=== PATIENT | female | born 1985 | race Caucasian/White ===

== ENCOUNTER 2016-05-31 22:52 | Emergency (ER) | payer SELFPAY ==
[~2016-05-31] VITALS: Ht 154.9 cm; Wt 43.0 kg
[~2016-05-31 22:52] MED LIST: NAPROSYN500 MG PO; XANAX0.25 MG PO
[2016-05-31 23:38] LABS: URINE BILIRUBIN - DIPSTICK NEGATIVE (NEGATIVE); URINE BLOOD DIPSTICK TRACE-INTACT (NEGATIVE); URINE CLARITY TURBID; URINE COLOR YELLOW; URINE GLUCOSE - DIPSTICK NEGATIVE (NEGATIVE); URINE KETONE NEGATIVE (NEGATIVE); URINE LEUK ESTERASE NEGATIVE (NEGATIVE); URINE NITRITE - DIPSTICK NEGATIVE (Negative); URINE PROTEIN - DIPSTICK NEGATIVE (NEG-TRACE); URINE UROBILINOGEN - DIPSTICK 0.2 E.U./dL (0.2)
[2016-05-31 23:40] LABS: HEMATOCRIT 38.8 % (37.0-47.0); HEMOGLOBIN 13.2 g/dl (12.0-16.0); IMMATURE GRANULOCYTES 0.2 % (0.0-1.0); MEAN CELL VOLUME 84.5 fL CALC (80.0-100.0); MEAN CORPUSCULAR HGB 28.8 pG CALC (26.0-32.0); NEUT# 7.64 thou/uL (2.00-7.15); RED BLOOD COUNT 4.59 mill/uL (4.20-5.60); RED CELL DISTRI WIDTH 13.5 % (11.5-15.5)
[2016-05-31 23:43] LABS: BARBITURATES NEGATIVE (NEGATIVE); COCAINE NEGATIVE (NEGATIVE); METHADONE NEGATIVE (NEGATIVE); OXCYCODONE NEGATIVE (NEGATIVE); TETRAHYDROCANNABIONOL NEGATIVE (NEGATIVE); TRICYLIC ANTIDEPRESSANTS NEGATIVE (NEGATIVE)
[2016-05-31 23:47] LABS: URINE AMORPH SEDIMENT MANY hpf (NONE-FEW); URINE SQUAMOUS EPITHELIAL CELL MODERATE EPI/hpf (0-FEW)
[2016-05-31 23:59] LABS: ALBUMIN 4.3 g/dL (3.2-5.0); ALKALINE PHOSPHATASE 66 u/l (38-126); ANION GAP 13 (6-22 (CALC)); BILIRUBIN, TOTAL 0.3 mg/dL (0.0-1.4); BUN 19 mg/dL (7-17); BUN/CREATININE RATIO 26 (12-20 (CALC)); CALCIUM 9.7 mg/dL (8.4-10.2); CARBON DIOXIDE 23 mmol/l (22-30); CHLORIDE 107 mmol/l (95-108); CREATININE 0.8 mg/dL (0.5-1.0); GFR > 60 ML/MIN (>=60 (CALC)); GFR FOR AFR.AMER. > 60 ML/MIN (>=60 (CALC)); GLUCOSE 98 mg/dL (65-105); POTASSIUM 3.7 mmol/l (3.5-5.1); SGOT/AST 44 u/l (14-36); SGPT/ALT 35 u/l (9-52); SODIUM 139 mmol/l (137-146); TOTAL PROTEIN 7.5 g/dL (6.3-8.2)
[2016-06-01 00:13] LABS: INFLUENZA A NONE DETECTED (NONE DETECT); INFLUENZA B NONE DETECTED (NONE DETECT)
[2016-06-01] MEDS ORDERED: TOUJEO SOL300 UNIT/M SC (00:18)
[2016-06-01] MEDS ORDERED: ZOFRAN ODT4 MG PO (01:23)
[2016-06-01 02:14] VITALS: BP 91/50
== END 2016-06-01 02:14 | disposition home or self-care (01) | DRG 866 ==
LOC: ED 22:52
PROVIDERS: Emergency Medicine
DX: B34.9 Viral infection, unspecified (principal); F17.210 Nicotine dependence, cigarettes, uncomplicated; R50.9 Fever, unspecified; R53.1 Weakness

== ENCOUNTER 2017-02-18 07:34 | Emergency (ER) | payer SELFPAY ==
[~2017-02-18] VITALS: Ht 154.9 cm; Wt 45.0 kg
[~2017-02-18 07:34] MED LIST changes: +TOUJEO SOL300 UNIT/M SC; +ZOFRAN ODT4 MG PO
[2017-02-18 08:45] LABS: HEMOGLOBIN 15.7 g/dl (12.0-16.0); IMMATURE GRANULOCYTES 0.5 % (0.0-1.0); MEAN CELL VOLUME 90.6 fL CALC (80.0-100.0); MEAN CORPUSCULAR HGB 30.3 pG CALC (26.0-32.0); MEAN CORPUSCULAR HGB CONC 33.4 g/L CALC (32.0-36.0); NEUT# 6.66 thou/uL (2.00-7.15); RED BLOOD COUNT 5.19 mill/uL (4.20-5.60); RED CELL DISTRI WIDTH 12.6 % (11.5-15.5)
[2017-02-18 08:48] LABS: URINE BILIRUBIN - DIPSTICK NEGATIVE (NEGATIVE); URINE BLOOD DIPSTICK LARGE (NEGATIVE); URINE GLUCOSE - DIPSTICK NEGATIVE (NEGATIVE); URINE KETONE TRACE mg/dL (NEGATIVE); URINE LEUK ESTERASE TRACE (NEGATIVE); URINE NITRITE - DIPSTICK NEGATIVE (Negative); URINE PH 5.5 (4.5-8.0); URINE PROTEIN - DIPSTICK 100 mg/dL (NEG-TRACE); URINE SPECIFIC GRAVITY >=1.030
[2017-02-18 08:51] LABS: URINE CLARITY CLOUDY; URINE COLOR BROWN; URINE RBC TNTC RBC/hpf (0-5); URINE SQUAMOUS EPITHELIAL CELL FEW EPI/hpf (0-FEW)
[2017-02-18 09:06] LABS: ALBUMIN 4.9 g/dL (3.2-5.0); ALKALINE PHOSPHATASE 63 u/l (38-126); ANION GAP 16 (6-22 (CALC)); BILIRUBIN, TOTAL 0.5 mg/dL (0.0-1.4); BUN 20 mg/dL (7-17); BUN/CREATININE RATIO 24 (12-20 (CALC)); CALCIUM 9.6 mg/dL (8.4-10.2); CARBON DIOXIDE 26 mmol/l (22-30); CHLORIDE 106 mmol/l (95-108); CREATININE 0.9 mg/dL (0.5-1.0); GFR > 60 ML/MIN (>=60 (CALC)); GFR FOR AFR.AMER. > 60 ML/MIN (>=60 (CALC)); GLUCOSE 86 mg/dL (65-105); POTASSIUM 3.5 mmol/l (3.5-5.1); SGOT/AST 25 u/l (14-36); SGPT/ALT 27 u/l (9-52); SODIUM 145 mmol/l (137-146); TOTAL PROTEIN 7.8 g/dL (6.3-8.2)
[2017-02-18 09:43] LABS: BETA-HCG, QUANT(RESULT NUMBER) 0 mIU/mL
[2017-02-18 11:04] VITALS: BP 104/54
[2017-02-18] MEDS ORDERED: CEPHALEXIN500 MG PO (11:12)
== END 2017-02-18 11:20 | disposition home or self-care (01) | DRG 690 ==
LOC: ED 07:34
PROVIDERS: Emergency Medicine
DX: N39.0 Urinary tract infection, site not specified (principal); R10.2 Pelvic and perineal pain; R11.2 Nausea with vomiting, unspecified; R30.0 Dysuria; R31.9 Hematuria, unspecified

== ENCOUNTER 2017-07-13 19:44 | Emergency (ER) | payer SELFPAY ==
[~2017-07-13] VITALS: Ht 154.9 cm; Wt 43.4 kg
[~2017-07-13 19:44] MED LIST changes: +CEPHALEXIN500 MG PO
[2017-07-13 20:33] LABS: HEMATOCRIT 45.5 % (37.0-47.0); IMMATURE GRANULOCYTES 0.3 % (0.0-1.0); MEAN CELL VOLUME 91.9 fL CALC (80.0-100.0); MEAN CORPUSCULAR HGB 30.3 pG CALC (26.0-32.0); NEUT# 5.86 thou/uL (2.00-7.15); RED BLOOD COUNT 4.95 mill/uL (4.20-5.60); RED CELL DISTRI WIDTH 12.5 % (11.5-15.5)
[2017-07-13 20:35] LABS: URINE BILIRUBIN - DIPSTICK NEGATIVE (NEGATIVE); URINE BLOOD DIPSTICK MODERATE (NEGATIVE); URINE COLOR YELLOW; URINE GLUCOSE - DIPSTICK NEGATIVE (NEGATIVE); URINE KETONE NEGATIVE (NEGATIVE); URINE LEUK ESTERASE NEGATIVE (NEGATIVE); URINE NITRITE - DIPSTICK NEGATIVE (Negative); URINE PROTEIN - DIPSTICK TRACE mg/dL (NEG-TRACE); URINE SPECIFIC GRAVITY >=1.030
[2017-07-13 20:36] LABS: URINE CLARITY CLEAR
[2017-07-13 20:42] LABS: URINE SQUAMOUS EPITHELIAL CELL MODERATE EPI/hpf (0-FEW); URINE WBC 0-2 WBC/hpf (0-5)
[2017-07-13 20:44] LABS: ALBUMIN 4.5 g/dL (3.2-5.0); ALKALINE PHOSPHATASE 49 u/l (38-126); AMYLASE 43 u/l (30-110); BILIRUBIN, TOTAL 0.4 mg/dL (0.0-1.4); BUN 18 mg/dL (7-17); BUN/CREATININE RATIO 23 (12-20 (CALC)); CARBON DIOXIDE 29 mmol/l (22-30); CHLORIDE 104 mmol/l (95-108); CREATININE 0.8 mg/dL (0.5-1.0); GFR > 60 ML/MIN (>=60 (CALC)); GFR FOR AFR.AMER. > 60 ML/MIN (>=60 (CALC)); LIPASE 59 u/l (23-300); SGOT/AST 24 u/l (14-36); SGPT/ALT 36 u/l (9-52); SODIUM 144 mmol/l (137-146); TOTAL PROTEIN 7.5 g/dL (6.3-8.2)
[2017-07-13 20:47] LABS: ANION GAP 15 (6-22 (CALC)); POTASSIUM 4.4 mmol/l (3.5-5.1)
[2017-07-13] MEDS ORDERED: LOMOTIL2.5 MG PO (21:12)
[2017-07-13] MEDS ORDERED: PHENERGAN25 MG/TAB PO (21:12)
[2017-07-13 22:01] VITALS: BP 120/73
== END 2017-07-13 21:45 | disposition home or self-care (01) | DRG 392 ==
LOC: ED 19:44
PROVIDERS: Family Medicine
DX: A08.4 Viral intestinal infection, unspecified (principal); F17.210 Nicotine dependence, cigarettes, uncomplicated; R11.2 Nausea with vomiting, unspecified

== ENCOUNTER 2017-09-09 20:17 | Emergency (ER) | payer SELFPAY ==
[~2017-09-09] VITALS: Ht 154.9 cm; Wt 42.0 kg
[~2017-09-09 20:17] MED LIST changes: +LOMOTIL2.5 MG PO; +PHENERGAN25 MG/TAB PO
[2017-09-09 21:24] LABS: HEMATOCRIT 40.1 % (37.0-47.0); HEMOGLOBIN 13.4 g/dl (12.0-16.0); IMMATURE GRANULOCYTES 0.3 % (0.0-1.0); MEAN CELL VOLUME 89.3 fL CALC (80.0-100.0); MEAN CORPUSCULAR HGB 29.8 pG CALC (26.0-32.0); MEAN CORPUSCULAR HGB CONC 33.4 g/L CALC (32.0-36.0); NEUT# 3.86 thou/uL (2.00-7.15); RED BLOOD COUNT 4.49 mill/uL (4.20-5.60); RED CELL DISTRI WIDTH 12.6 % (11.5-15.5)
[2017-09-09 21:25] LABS: URINE BILIRUBIN - DIPSTICK NEGATIVE (NEGATIVE); URINE BLOOD DIPSTICK SMALL (NEGATIVE); URINE COLOR YELLOW; URINE GLUCOSE - DIPSTICK NEGATIVE (NEGATIVE); URINE KETONE NEGATIVE (NEGATIVE); URINE LEUK ESTERASE NEGATIVE (NEGATIVE); URINE NITRITE - DIPSTICK NEGATIVE (Negative); URINE PROTEIN - DIPSTICK NEGATIVE (NEG-TRACE); URINE SPECIFIC GRAVITY 1.025; URINE UROBILINOGEN - DIPSTICK 0.2 E.U./dL (0.2)
[2017-09-09 21:26] LABS: URINE CLARITY CLEAR
[2017-09-09 21:38] LABS: URINE SQUAMOUS EPITHELIAL CELL FEW EPI/hpf (0-FEW); URINE WBC 0-2 WBC/hpf (0-5)
[2017-09-09 21:40] LABS: ALKALINE PHOSPHATASE 48 u/l (38-126); ANION GAP 11 (6-22 (CALC)); BILIRUBIN, TOTAL 0.3 mg/dL (0.0-1.4); BUN 19 mg/dL (7-17); BUN/CREATININE RATIO 23 (12-20 (CALC)); CARBON DIOXIDE 27 mmol/l (22-30); CHLORIDE 107 mmol/l (95-108); CREATININE 0.8 mg/dL (0.5-1.0); GFR > 60 ML/MIN (>=60 (CALC)); GFR FOR AFR.AMER. > 60 ML/MIN (>=60 (CALC)); SGOT/AST 34 u/l (14-36); SGPT/ALT 29 u/l (9-52); SODIUM 141 mmol/l (137-146); TOTAL PROTEIN 6.9 g/dL (6.3-8.2)
[2017-09-09 21:43] LABS: POTASSIUM 3.5 mmol/l (3.5-5.1)
[2017-09-09 21:52] LABS: MYOGLOBIN 20 ng/mL (0 - 62)
[2017-09-10] MEDS ORDERED: IBUPROFEN600 MG PO
[2017-09-10 00:30] VITALS: BP 101/53
== END 2017-09-10 00:35 | disposition home or self-care (01) | DRG 313 ==
LOC: ED 20:17
PROVIDERS: Emergency Medicine
DX: R07.89 Other chest pain (principal); R00.1 Bradycardia, unspecified; F17.200 Nicotine dependence, unspecified, uncomplicated
CPT/HCPCS: Q9967; S0164

== ENCOUNTER 2018-03-10 20:10 | Emergency (ER) | payer SELFPAY ==
[~2018-03-10] VITALS: Ht 154.9 cm; Wt 43.0 kg
[~2018-03-10 20:10] MED LIST changes: +IBUPROFEN600 MG PO
[2018-03-10 20:17] VITALS: BP 129/59
[2018-03-10] MEDS ORDERED: AUGMENTIN875TAB PO ×2 (20:45→20:46)
== END 2018-03-10 20:57 | disposition home or self-care (01) | DRG 605 ==
LOC: ED 20:10
DX: S70.372A Other superficial bite of left thigh, initial encounter (principal); F17.200 Nicotine dependence, unspecified, uncomplicated; W54.0XXA Bitten by dog, initial encounter; Y92.009 Unspecified place in unspecified non-institutional (private) residence as the place of occurrence of the external cause

== ENCOUNTER 2018-04-05 17:42 | Emergency (ER) | payer SELFPAY ==
[~2018-04-05] VITALS: Ht 154.9 cm; Wt 41.0 kg
[~2018-04-05 17:42] MED LIST changes: +AUGMENTIN875TAB PO
[2018-04-05] MEDS ORDERED: ALBENZA200 MG PO (19:02)
[2018-04-05 19:05] VITALS: BP 121/64
== END 2018-04-05 19:05 | disposition home or self-care (01) | DRG 392 ==
LOC: ED 17:42
DX: B80 Enterobiasis (principal); F17.210 Nicotine dependence, cigarettes, uncomplicated

== ENCOUNTER 2018-06-17 15:40 | Emergency (ER) | payer SELFPAY ==
[~2018-06-17] VITALS: Ht 154.9 cm; Wt 43.0 kg
[~2018-06-17 15:40] MED LIST changes: +ALBENZA200 MG PO
[2018-06-17] MEDS ORDERED: EPIPEN 2-P0.3 MG/0.3 IM (16:17)
[2018-06-17] MEDS ORDERED: PREDNISONE50 MG PO ×2 (16:17→17:27)
[2018-06-17 16:29] LABS: HEMOGLOBIN 14.6 g/dl (12.0-16.0); IMMATURE GRANULOCYTES 0.2 % (0.0-5.0); MEAN CORPUSCULAR HGB 29.9 pG CALC (26.0-32.0); MEAN CORPUSCULAR HGB CONC 33.2 g/L CALC (32.0-36.0); NEUT# 5.09 thou/uL (2.00-7.15); RED BLOOD COUNT 4.89 mill/uL (4.20-5.60); RED CELL DISTRI WIDTH 12.3 % (11.5-15.5)
[2018-06-17 16:35] LABS: ANION GAP 15 (6-22 (CALC)); BUN 22 mg/dL (7-17); BUN/CREATININE RATIO 33 (12-20 (CALC)); CARBON DIOXIDE 24 mmol/l (22-30); CHLORIDE 106 mmol/l (95-108); CREATININE 0.7 mg/dL (0.5-1.0); GFR > 60 ML/MIN (>=60 (CALC)); GFR FOR AFR.AMER. > 60 ML/MIN (>=60 (CALC)); POTASSIUM 4.1 mmol/l (3.5-5.1); SODIUM 141 mmol/l (137-146)
[2018-06-17 18:25] VITALS: BP 105/54
== END 2018-06-17 18:27 | disposition home or self-care (01) | DRG 918 ==
LOC: ED 15:40
PROVIDERS: Family Medicine
DX: T63.461A Toxic effect of venom of wasps, accidental (unintentional), initial encounter (principal); R22.43 Localized swelling, mass and lump, lower limb, bilateral; L29.9 Pruritus, unspecified; Y92.009 Unspecified place in unspecified non-institutional (private) residence as the place of occurrence of the external cause

== ENCOUNTER 2018-09-05 16:35 | Emergency (ER) | payer SELFPAY ==
[~2018-09-05] VITALS: Ht 154.9 cm; Wt 40.0 kg
[~2018-09-05 16:35] MED LIST changes: +EPIPEN 2-P0.3 MG/0.3 IM; +PREDNISONE50 MG PO
[2018-09-05] MEDS ORDERED: AMOXICILLIN500 M2 PO (17:00)
[2018-09-05] MEDS ORDERED: GENTAK0.32 OU (17:26)
[2018-09-05 17:35] VITALS: BP 116/75
== END 2018-09-05 17:35 | disposition home or self-care (01) | DRG 125 ==
LOC: ED 16:35
DX: H10.9 Unspecified conjunctivitis (principal); R05 Cough; F17.210 Nicotine dependence, cigarettes, uncomplicated

== ENCOUNTER 2018-10-10 19:58 | Emergency (ER) | payer SELFPAY ==
[~2018-10-10] VITALS: Ht 154.9 cm; Wt 48.5 kg
[~2018-10-10 19:58] MED LIST changes: +AMOXICILLIN500 M2 PO; +GENTAK0.32 OU
[2018-10-10] MEDS ORDERED: MEDDOSEPAK PO (21:01)
[2018-10-10] MEDS ORDERED: PEPCID20 MG PO (21:01)
[2018-10-10 21:03] VITALS: BP 128/77
== END 2018-10-10 21:08 | disposition home or self-care (01) | DRG 918 ==
LOC: ED 19:58
DX: T63.461A Toxic effect of venom of wasps, accidental (unintentional), initial encounter (principal); F17.200 Nicotine dependence, unspecified, uncomplicated

== ENCOUNTER 2018-10-31 00:28 | Emergency (ER) | payer SELFPAY ==
[~2018-10-31] VITALS: Ht 154.9 cm; Wt 49.1 kg
[~2018-10-31 00:28] MED LIST changes: +MEDDOSEPAK PO; +PEPCID20 MG PO
[2018-10-31 01:01] LABS: HEMATOCRIT 47.3 % (37.0-47.0); HEMOGLOBIN 15.8 g/dl (12.0-16.0); IMMATURE GRANULOCYTES 0.3 % (0.0-5.0); MEAN CELL VOLUME 86.8 fL CALC (80.0-100.0); MEAN CORPUSCULAR HGB CONC 33.4 g/L CALC (32.0-36.0); NEUT# 5.51 thou/uL (2.00-7.15); RED BLOOD COUNT 5.45 mill/uL (4.20-5.60); RED CELL DISTRI WIDTH 12.6 % (11.5-15.5)
[2018-10-31] MEDS ORDERED: MOTRIN800 MG PO (01:07)
[2018-10-31] MEDS ORDERED: TYLENOL # 31 TA1 PO (01:07)
[2018-10-31 01:17] LABS: URINE BILIRUBIN - DIPSTICK NEGATIVE (NEGATIVE); URINE BLOOD DIPSTICK MODERATE (NEGATIVE); URINE COLOR YELLOW; URINE GLUCOSE - DIPSTICK NEGATIVE (NEGATIVE); URINE KETONE NEGATIVE (NEGATIVE); URINE LEUK ESTERASE NEGATIVE (NEGATIVE); URINE NITRITE - DIPSTICK NEGATIVE (Negative); URINE PROTEIN - DIPSTICK NEGATIVE (NEG-TRACE); URINE SPECIFIC GRAVITY 1.015; URINE UROBILINOGEN - DIPSTICK 0.2 E.U./dL (0.2)
[2018-10-31 01:18] LABS: ALBUMIN 4.8 g/dL (3.2-5.0); AMYLASE 79 u/l (30-110); ANION GAP 15 (6-22 (CALC)); BUN 17 mg/dL (7-17); BUN/CREATININE RATIO 25 (12-20 (CALC)); CARBON DIOXIDE 21 mmol/l (22-30); CHLORIDE 108 mmol/l (95-108); CREATININE 0.7 mg/dL (0.5-1.0); GFR > 60 ML/MIN (>=60 (CALC)); GFR FOR AFR.AMER. > 60 ML/MIN (>=60 (CALC)); LIPASE 78 u/l (23-300); POTASSIUM 3.6 mmol/l (3.5-5.1); SGOT/AST 34 u/l (14-36); SODIUM 140 mmol/l (137-146)
[2018-10-31 01:19] LABS: ALKALINE PHOSPHATASE 73 u/l (38-126); BILIRUBIN, TOTAL 0.5 mg/dL (0.0-1.4); TOTAL PROTEIN 8.5 g/dL (6.3-8.2)
[2018-10-31 01:37] LABS: URINE WBC 0-2 WBC/hpf (0-5)
[2018-10-31 01:38] LABS: URINE SQUAMOUS EPITHELIAL CELL FEW EPI/hpf (0-FEW)
[2018-10-31 03:17] LABS: C. DIFFICILE TOXIN A&B NEGATIVE (NEGATIVE)
[2018-10-31] MEDS ORDERED: LOMOTIL2.5 MG PO (03:31)
[2018-10-31 04:08] VITALS: BP 90/58
== END 2018-10-31 04:08 | disposition home or self-care (01) | DRG 392 ==
LOC: ED 00:28
PROVIDERS: Family Medicine
DX: A08.4 Viral intestinal infection, unspecified (principal); F17.210 Nicotine dependence, cigarettes, uncomplicated

== ENCOUNTER 2018-12-05 09:28 | Emergency (ER) | payer SELFPAY ==
[~2018-12-05] VITALS: Ht 154.9 cm; Wt 47.0 kg
[~2018-12-05 09:28] MED LIST changes: +MOTRIN800 MG PO; +TYLENOL # 31 TA1 PO
[2018-12-05 11:35] VITALS: BP 110/71
== END 2018-12-05 11:35 | disposition home or self-care (01) | DRG 918 ==
LOC: ED 09:28
DX: T63.481A Toxic effect of venom of other arthropod, accidental (unintentional), initial encounter (principal); F17.210 Nicotine dependence, cigarettes, uncomplicated

== ENCOUNTER 2019-01-03 22:18 | Emergency (ER) | payer SELFPAY ==
[~2019-01-03] VITALS: Ht 154.9 cm; Wt 48.0 kg
[2019-01-03] MEDS ORDERED: AUGMENTIN400 MG/5 M PO (22:37)
[2019-01-03 22:54] VITALS: BP 121/55
== END 2019-01-03 22:56 | disposition home or self-care (01) | DRG 153 ==
LOC: ED 22:18
DX: J02.9 Acute pharyngitis, unspecified (principal); H66.91 Otitis media, unspecified, right ear

== ENCOUNTER 2019-02-22 01:25 | Emergency (ER) | payer SELFPAY ==
[~2019-02-22] VITALS: Ht 154.9 cm; Wt 47.7 kg
[~2019-02-22 01:25] MED LIST changes: +AUGMENTIN400 MG/5 M PO
[2019-02-22] MEDS ORDERED: VOLTAREN - GENE75 MG PO (02:09)
[2019-02-22 02:36] VITALS: BP 114/63
[2019-03-27] MEDS ORDERED: TESSALON PER100 MG PO (16:47)
== END 2019-02-22 02:36 | disposition home or self-care (01) | DRG 563 ==
LOC: ED 01:25
DX: S66.912A Strain of unspecified muscle, fascia and tendon at wrist and hand level, left hand, initial encounter (principal); F17.210 Nicotine dependence, cigarettes, uncomplicated; X58.XXXA Exposure to other specified factors, initial encounter

== ENCOUNTER 2019-03-27 | Emergency (ER) | payer OTHER ==
[~2019-03-27] MED LIST changes: +VOLTAREN - GENE75 MG PO
[2019-03-27] MEDS ORDERED: TESSALON PER100 MG PO ×2 (16:47)
== END 2019-03-27 16:50 | disposition home or self-care (01) ==
DX: B34.9 Viral infection, unspecified (principal); F17.210 Nicotine dependence, cigarettes, uncomplicated

== ENCOUNTER 2019-09-23 18:30 | Emergency (ER) | payer OTHER ==
[~2019-09-23] VITALS: Ht 154.9 cm; Wt 55.0 kg
[~2019-09-23 18:30] MED LIST changes: +TESSALON PER100 MG PO
[2019-09-23] MEDS ORDERED: KEFLEX500 MG PO (19:49)
[2019-09-23] MEDS ORDERED: BENADRYL 50MG C50 MG PO (19:49)
[2019-09-23 19:55] VITALS: BP 138/69
== END 2019-09-23 19:55 | disposition home or self-care (01) ==
LOC: ED 18:30
DX: S70.361A Insect bite (nonvenomous), right thigh, initial encounter (principal); F17.200 Nicotine dependence, unspecified, uncomplicated; W57.XXXA Bitten or stung by nonvenomous insect and other nonvenomous arthropods, initial encounter

== ENCOUNTER 2019-10-05 23:20 | Emergency (ER) | payer OTHER ==
[~2019-10-05] VITALS: Ht 154.9 cm; Wt 54.5 kg
[~2019-10-05 23:20] MED LIST changes: +BENADRYL 50MG C50 MG PO; +KEFLEX500 MG PO
[2019-10-06] MEDS ORDERED: KEFLEX500 MG PO (00:11)
[2019-10-06 00:30] VITALS: BP 124/75
== END 2019-10-06 00:30 | disposition home or self-care (01) ==
LOC: ED 23:20
DX: S81.832A Puncture wound without foreign body, left lower leg, initial encounter (principal); F17.210 Nicotine dependence, cigarettes, uncomplicated; L08.9 Local infection of the skin and subcutaneous tissue, unspecified; W26.8XXA Contact with other sharp object(s), not elsewhere classified, initial encounter

== ENCOUNTER 2020-01-09 20:17 | Emergency (ER) | payer OTHER ==
[~2020-01-09] VITALS: Ht 154.9 cm; Wt 52.0 kg
[2020-01-09 21:47] LABS: HEMATOCRIT 42.4 % (37.0-47.0); IMMATURE GRANULOCYTES 0.4 % (0.0-5.0); MEAN CELL VOLUME 88.1 fL CALC (80.0-100.0); MEAN CORPUSCULAR HGB 28.5 pG CALC (26.0-32.0); MEAN CORPUSCULAR HGB CONC 32.3 g/dL CAL (32.0-36.0); NEUT# 6.71 thou/uL (2.00-7.15); RED BLOOD COUNT 4.81 mill/uL (4.20-5.60); RED CELL DISTRI WIDTH 13.2 % (11.5-15.5)
[2020-01-09 21:48] LABS: HEMOGLOBIN 13.7 g/dl (12.0-16.0)
[2020-01-09 21:48] LABS: URINE BILIRUBIN - DIPSTICK NEGATIVE (NEGATIVE); URINE BLOOD DIPSTICK MODERATE (NEGATIVE); URINE COLOR YELLOW; URINE GLUCOSE - DIPSTICK NEGATIVE (NEGATIVE); URINE KETONE NEGATIVE (NEGATIVE); URINE LEUK ESTERASE NEGATIVE (NEGATIVE); URINE NITRITE - DIPSTICK NEGATIVE (Negative); URINE PH 6.5 (4.5-8.0); URINE PROTEIN - DIPSTICK NEGATIVE (NEG-TRACE); URINE SPECIFIC GRAVITY 1.025; URINE UROBILINOGEN - DIPSTICK 0.2 E.U./dL (0.2)
[2020-01-09 21:51] LABS: URINE SQUAMOUS EPITHELIAL CELL FEW EPI/hpf (0-FEW); URINE WBC 0-2 WBC/hpf (0-5)
[2020-01-09 22:06] LABS: ALKALINE PHOSPHATASE 58 u/l (38-126); AMYLASE 46 u/l (30-110); ANION GAP 10 (6-22 (CALC)); BUN 17 mg/dL (7-17); BUN/CREATININE RATIO 26 (12-20 (CALC)); CARBON DIOXIDE 23 mmol/l (22-30); CHLORIDE 108 mmol/l (95-108); CREATININE 0.7 mg/dL (0.5-1.0); GFR > 60 ML/MIN (>=60 (CALC)); GFR FOR AFR.AMER. > 60 ML/MIN (>=60 (CALC)); LIPASE 86 u/l (23-300); POTASSIUM 3.8 mmol/l (3.5-5.1); SGOT/AST 28 u/l (14-36); SODIUM 137 mmol/l (137-146); TOTAL PROTEIN 6.9 g/dL (6.3-8.2)
[2020-01-09 22:07] LABS: BILIRUBIN, TOTAL 0.2 mg/dL (0.0-1.4)
[2020-01-09 22:23] LABS: BETA-HCG, QUANT(RESULT NUMBER) 112 mIU/mL
[2020-01-09 22:53] VITALS: BP 118/72
== END 2020-01-09 22:46 | disposition home or self-care (01) ==
LOC: ED 20:17
PROVIDERS: Emergency Medicine
DX: O26.891 Other specified pregnancy related conditions, first trimester (principal); R10.30 Lower abdominal pain, unspecified; O99.331 Smoking (tobacco) complicating pregnancy, first trimester; F17.200 Nicotine dependence, unspecified, uncomplicated; Z3A.00 Weeks of gestation of pregnancy not specified

== ENCOUNTER 2020-03-11 19:02 | Emergency (ER) | payer OTHER ==
[~2020-03-11] VITALS: Ht 152.4 cm; Wt 54.0 kg
[2020-03-11] MEDS ORDERED: PRENATA3 PO (20:10)
[2020-03-11 20:49] LABS: HEMATOCRIT 38.6 % (37.0-47.0); HEMOGLOBIN 12.7 g/dl (12.0-16.0); IMMATURE GRANULOCYTES 0.6 % (0.0-5.0); MEAN CELL VOLUME 87.3 fL CALC (80.0-100.0); MEAN CORPUSCULAR HGB 28.7 pG CALC (26.0-32.0); MEAN CORPUSCULAR HGB CONC 32.9 g/dL CAL (32.0-36.0); NEUT# 6.85 thou/uL (2.00-7.15); RED BLOOD COUNT 4.42 mill/uL (4.20-5.60)
[2020-03-11 20:51] LABS: URINE BILIRUBIN - DIPSTICK NEGATIVE (NEGATIVE); URINE BLOOD DIPSTICK MODERATE (NEGATIVE); URINE COLOR YELLOW; URINE GLUCOSE - DIPSTICK NEGATIVE (NEGATIVE); URINE KETONE NEGATIVE (NEGATIVE); URINE LEUK ESTERASE NEGATIVE (NEGATIVE); URINE NITRITE - DIPSTICK NEGATIVE (Negative); URINE PROTEIN - DIPSTICK NEGATIVE (NEG-TRACE); URINE SPECIFIC GRAVITY >=1.030; URINE UROBILINOGEN - DIPSTICK 0.2 E.U./dL (0.2)
[2020-03-11 21:02] LABS: URINE SQUAMOUS EPITHELIAL CELL FEW EPI/hpf (0-FEW)
[2020-03-11 21:12] LABS: ALBUMIN 3.8 g/dL (3.2-5.0); ALKALINE PHOSPHATASE 65 u/l (38-126); AMYLASE 44 u/l (30-110); ANION GAP 11 (6-22 (CALC)); BILIRUBIN, TOTAL 0.2 mg/dL (0.0-1.4); BUN 12 mg/dL (7-17); BUN/CREATININE RATIO 24 (12-20 (CALC)); CARBON DIOXIDE 23 mmol/l (22-30); CHLORIDE 105 mmol/l (95-108); CREATININE 0.5 mg/dL (0.5-1.0); GFR > 60 ML/MIN (>=60 (CALC)); GFR FOR AFR.AMER. > 60 ML/MIN (>=60 (CALC)); LIPASE 52 u/l (23-300); POTASSIUM 3.8 mmol/l (3.5-5.1); SGOT/AST 27 u/l (14-36); SODIUM 135 mmol/l (137-146); TOTAL PROTEIN 6.6 g/dL (6.3-8.2)
[2020-03-11] MEDS ORDERED: KEFLEX500 M1 PO (21:50)
[2020-03-11 21:55] LABS: BETA-HCG, QUANT(RESULT NUMBER) 112530 mIU/mL
[2020-03-11 22:00] VITALS: BP 112/67
== END 2020-03-11 22:04 | disposition home or self-care (01) ==
LOC: ED 19:02
PROVIDERS: Emergency Medicine
DX: O23.41 Unspecified infection of urinary tract in pregnancy, first trimester (principal); O99.331 Smoking (tobacco) complicating pregnancy, first trimester; F17.200 Nicotine dependence, unspecified, uncomplicated; Z3A.12 12 weeks gestation of pregnancy

== ENCOUNTER 2023-02-28 22:49 | Emergency (ER) | payer OTHER ==
[~2023-02-28] VITALS: Ht 152.4 cm; Wt 61.0 kg
[~2023-02-28 22:49] MED LIST changes: +KEFLEX500 M1 PO; +PRENATA3 PO
[2023-02-28 22:57] VITALS: BP 114/71
[2023-02-28 23:00] VITALS: BP 109/68
[2023-02-28 23:15] VITALS: BP 105/56
[2023-02-28 23:30] VITALS: BP 104/57
[2023-02-28 23:45] VITALS: BP 94/56
[2023-03-01] VITALS: BP 105/49
[2023-03-01 00:15] VITALS: BP 97/53
[2023-03-01] MEDS ORDERED: EPIPEN 2-P0.3 MG/0.3 SC (00:17)
[2023-03-01 00:30] VITALS: BP 94/54
[2023-03-01 00:45] VITALS: BP 98/48
[2023-03-01 01:00] VITALS: BP 94/47
== END 2023-03-01 01:20 | disposition home or self-care (01) ==
LOC: ED 22:49
DX: T78.1XXA Other adverse food reactions, not elsewhere classified, initial encounter (principal); L50.0 Allergic urticaria; X58.XXXA Exposure to other specified factors, initial encounter; F17.200 Nicotine dependence, unspecified, uncomplicated; Z91.013 Allergy to seafood

== ENCOUNTER 2023-10-29 10:29 | Emergency (ER) | payer OTHER ==
[2023-10-29] VITALS (13 sets, daily range): BP systolic 48–115; BP diastolic 32–67
[~2023-10-29] VITALS: Ht 154.9 cm; Wt 77.1 kg
[~2023-10-29 10:29] MED LIST changes: +EPIPEN 2-P0.3 MG/0.3 SC
[2023-10-29 11:11] LABS: URINE BLOOD DIPSTICK Small (NEGATIVE); URINE GLUCOSE - DIPSTICK 250 mg/dL (NEGATIVE); URINE KETONE 15 mg/dL (NEGATIVE); URINE PROTEIN - DIPSTICK 100 mg/dL (NEG-TRACE); URINE UROBILINOGEN - DIPSTICK >=8.0 E.U./dL (0.2)
[2023-10-29 11:12] LABS: URINE COLOR Orange; URINE LEUK ESTERASE Large (NEGATIVE); URINE NITRITE - DIPSTICK Positive (Negative)
[2023-10-29 11:18] LABS: URINE BACTERIA FEW hpf
[2023-10-29 12:26] LABS: BASO% 0.3 % (0-3); EOS% 0.8 % (0-8); HEMATOCRIT 43.5 % (37.0-47.0); HEMOGLOBIN 14.1 g/dl (12.0-16.0); IMMATURE GRANULOCYTES 0.2 % (0.0-5.0); LYMPH% 16.5 % (15-41); MEAN CELL VOLUME 88.2 fL CALC (80.0-100.0); MEAN CORPUSCULAR HGB 28.6 pG CALC (26.0-32.0); MEAN CORPUSCULAR HGB CONC 32.4 g/dL CAL (32.0-36.0); NEUT# 7.19 thou/uL (2.00-7.15); NEUT% 76.2 % (42-76); RED BLOOD COUNT 4.93 mill/uL (4.20-5.60)
[2023-10-29 13:02] LABS: CREATININE 0.7 mg/dL (0.5-1.0); POTASSIUM 4.3 mmol/l (3.5-5.1)
[2023-10-29] MEDS ORDERED: DiphenhydrAMINE HCL 50 MG/ML SDV IV ONE (13:20)
[2023-10-29] MEDS ORDERED: DEXAMETHASONE SOD. PHOSPHATE 10 MG/ML VIAL IV ONE (13:25)
[2023-10-29] MEDS ORDERED: CEPHALEXIN MONOHYDRATE 500 MG/CAP PO ONE (14:00)
[2023-10-29] MEDS ORDERED: KEFLEX500 MG PO (14:25)
== END 2023-10-29 15:02 | disposition home or self-care (01) ==
LOC: ED 10:29
PROVIDERS: Family Medicine
DX: N39.0 Urinary tract infection, site not specified (principal); B96.20 Unspecified Escherichia coli [E. coli] as the cause of diseases classified elsewhere; L27.1 Localized skin eruption due to drugs and medicaments taken internally; T36.8X5A Adverse effect of other systemic antibiotics, initial encounter; Y92.230 Patient room in hospital as the place of occurrence of the external cause; F17.200 Nicotine dependence, unspecified, uncomplicated